=== PATIENT | male | born 1935 | race Caucasian/White ===

== ENCOUNTER 2016-03-01 13:45 | Emergency (ER) | payer OTHER ==
[2016-03-01 14:10] VITALS: TEMP 97.7
[2016-03-01] MEDS ORDERED: APAP/HYDROCODONE 325/5 TAB PO ONE (15:24)
[2016-03-01] MEDS ORDERED: APAP/HYDROCODONE 325/5 TAB ONE (15:25)
[2016-03-01 15:53] VITALS: BP 132/63; PULSE 65; RESP 16; O2SAT 95
== END 2016-03-01 15:48 | disposition home or self-care (01) | DRG 552 ==
LOC: ED 13:45
DX: S32.029A Unspecified fracture of second lumbar vertebra, initial encounter for closed fracture (principal); W07.XXXA Fall from chair, initial encounter; Y92.59 Other trade areas as the place of occurrence of the external cause
CPT/HCPCS: 72120; 99282